=== PATIENT | female | born 1980 | race Caucasian/White ===

== ENCOUNTER → 2016-10-19 | Outpatient (REF) | payer OTHER ==
[~2016-10-19] MED LIST: ACET50TA PO; IBUP60TA PO; IBUP80TA OR; PNV-CAP5 PO
[2016-10-19 12:13] LABS: ALBUMIN 3.5 GM/DL (3.2-5.2); ALKALINE PHOSPHATASE 141 U/L (45-117); ALT/SGPT 36 U/L (12-78); ANION GAP 9 MEQ/L (8-16); AST/SGOT 24 U/L (15-37); BILIRUBIN,TOTAL 0.5 MG/DL (0.2-1.0); BLOOD UREA NITROGEN 11 MG/DL (7-18); CALCIUM LEVEL 8.8 MG/DL (8.5-10.1); CARBON DIOXIDE LEVEL 26 MEQ/L (21-32); CHLORIDE LEVEL 109 MEQ/L (98-107); CHOLESTEROL LEVEL 105 MG/DL (<200); CREATININE FOR GFR 0.44 MG/DL (0.55-1.02); FREE T4 2.53 NG/DL (0.76-1.46); GLOMERULAR FILTRATION RATE > 60.0 (>60); GLUCOSE, FASTING 88 MG/DL (70-105); POTASSIUM SERUM 4.3 MEQ/L (3.5-5.1); SODIUM LEVEL 144 MEQ/L (136-145); TRIGLYCERIDES LEVEL 89 MG/DL (<150)
== END ==
LOC: M SFHCCLAY 07:19
PROVIDERS: ATTEND Family Medicine
DX: Z00.00 Encounter for general adult medical examination without abnormal findings (principal)

== ENCOUNTER → 2016-11-03 | Outpatient (CLI) | payer OTHER ==
--- NOTE | 2016-11-04 05:26 | REP ---
Clinical: Hyperthyroidism. Technique: Real time moore scale evaluation using linear high frequency transducer. Findings: Thyroid gland is heterogeneous without discrete nodule or cystic changes and otherwise unremarkable. Right lobe measures 4.8 x 2.1 x 2.1 cm. Left lobe measures 3.9 x 2.0 x 1.7 cm. Isthmus measures 4.7 mm in width. Impression: Unremarkable thyroid gland Signed by Juan Carlos Barnett MD 11/04/2016 05:17 A
== END ==
LOC: M RAD 16:15
PROVIDERS: ATTEND Family Medicine
DX: E05.90 Thyrotoxicosis, unspecified without thyrotoxic crisis or storm (principal)

== ENCOUNTER → 2016-11-22 | Outpatient (CLI) | payer OTHER ==
--- NOTE | 2016-11-23 14:42 | REP ---
Thyroid uptake and scan: History: Hyperthyroidism versus thyroiditis. Technique: 364.0 microcuries of I 123 sodium iodine is ingested and 2 and 24 uptake values are acquired along with functional thyroid images. Findings: At 2 hours the uptake value is quite elevated at 38.5% (6-12%). At 24 hours the uptake value is very elevated as well at 60.36% (25-35%). Functional images demonstrate homogeneous uptake in the thyroid lobes bilaterally. Right lobe is a little larger than left. No cold or warm lesion is seen. Impression: Findings consistent with Graves disease. 24 uptake value is 60.36%. Signed by Camron Talbot MD 11/23/2016 03:06 P
== END ==
LOC: M RAD 10:35
PROVIDERS: ATTEND Physician Assistant Medical
DX: E05.90 Thyrotoxicosis, unspecified without thyrotoxic crisis or storm (principal)

== ENCOUNTER → 2016-12-22 | Outpatient (CLI) | payer OTHER ==
[2016-12-22 09:45] LABS: FREE T4 3.09 NG/DL (0.76-1.46); HCG, SERUM QUANTITATIVE < 1.0 MIU/ML
== END ==
LOC: M LAB 08:44
PROVIDERS: ATTEND Physician Assistant Medical
DX: E05.00 Thyrotoxicosis with diffuse goiter without thyrotoxic crisis or storm (principal)

== ENCOUNTER → 2016-12-22 | Outpatient (CLI) | payer OTHER | LOC: M RAD 10:25 | PROVIDERS: ATTEND Internal Medicine Endocrinology, Diabetes & Metabolism | DX: E05.90 Thyrotoxicosis, unspecified without thyrotoxic crisis or storm (principal) ==

== ENCOUNTER → 2017-02-13 | Outpatient (REF) | payer OTHER ==
[2017-02-13 20:25] LABS: FREE T4 0.19 NG/DL (0.76-1.46)
== END ==
LOC: M LAB REF 16:16
PROVIDERS: ATTEND Internal Medicine Endocrinology, Diabetes & Metabolism
DX: E05.00 Thyrotoxicosis with diffuse goiter without thyrotoxic crisis or storm (principal)

== ENCOUNTER → 2017-04-27 | Outpatient (REF) | payer OTHER ==
[2017-04-28 12:42] LABS: FREE T4 1.53 NG/DL (0.76-1.46)
== END ==
LOC: M LABDRAWC 11:46
PROVIDERS: ATTEND Internal Medicine Endocrinology, Diabetes & Metabolism
DX: E89.0 Postprocedural hypothyroidism (principal)

== ENCOUNTER → 2017-07-24 | Outpatient (REF) | payer OTHER ==
[2017-07-24 12:43] LABS: FREE T4 1.39 NG/DL (0.76-1.46)
== END ==
LOC: M LABDRAWC 11:27
PROVIDERS: ATTEND Internal Medicine Endocrinology, Diabetes & Metabolism
DX: E89.0 Postprocedural hypothyroidism (principal)

== ENCOUNTER → 2017-10-26 | Outpatient (REF) | payer OTHER ==
[2017-10-27 11:56] LABS: ANION GAP 6 MEQ/L (8-16); BLOOD UREA NITROGEN 17 MG/DL (7-18); CALCIUM LEVEL 8.8 MG/DL (8.5-10.1); CARBON DIOXIDE LEVEL 31 MEQ/L (21-32); CHLORIDE LEVEL 104 MEQ/L (98-107); CREATININE FOR GFR 0.84 MG/DL (0.55-1.02); FREE T4 0.68 NG/DL (0.76-1.46); GLOMERULAR FILTRATION RATE > 60.0 (>60); GLUCOSE, FASTING 101 MG/DL (70-105); POTASSIUM SERUM 3.7 MEQ/L (3.5-5.1); SODIUM LEVEL 141 MEQ/L (136-145)
== END ==
LOC: M LABDRAWC 10-27 11:18
DX: R63.5 Abnormal weight gain (principal); R89.0 Abnormal level of enzymes in specimens from other organs, systems and tissues

== ENCOUNTER → 2017-12-25 | Outpatient (REF) | payer OTHER ==
[2017-12-25 18:20] LABS: FREE T4 1.66 NG/DL (0.76-1.46); THYROID STIMULATING HORMONE 0.156 uIU/ML (0.358-3.740)
== END ==
LOC: M LABDRAWC 16:02
DX: E89.0 Postprocedural hypothyroidism (principal)

== ENCOUNTER → 2018-02-05 | Outpatient (CLI) | payer OTHER | LOC: M RAD 08:45 | DX: R93.7 Abnormal findings on diagnostic imaging of other parts of musculoskeletal system (principal) | CPT/HCPCS: 73700 ==

== ENCOUNTER → 2018-02-22 | Outpatient (REF) | payer OTHER ==
[2018-02-22 12:48] LABS: FREE T4 1.41 NG/DL (0.76-1.46); THYROID STIMULATING HORMONE 0.474 uIU/ML (0.358-3.740)
== END ==
LOC: M LABDRAWC 11:26
DX: E89.0 Postprocedural hypothyroidism (principal)
CPT/HCPCS: 84443

== ENCOUNTER → 2018-04-20 | Outpatient (CLI) | payer OTHER | LOC: M RAD 09:38 | DX: S92.115A Nondisplaced fracture of neck of left talus, initial encounter for closed fracture (principal); X58.XXXA Exposure to other specified factors, initial encounter; Y92.89 Other specified places as the place of occurrence of the external cause; Y93.9 Activity, unspecified; Y99.9 Unspecified external cause status ==

== ENCOUNTER → 2018-07-10 | Outpatient (REF) | payer OTHER ==
[2018-07-10 18:33] LABS: FREE T4 1.01 NG/DL (0.76-1.46)
== END ==
LOC: M LABDRAWC 16:25
DX: E89.0 Postprocedural hypothyroidism (principal)
CPT/HCPCS: 84443

== ENCOUNTER → 2021-05-24 | Outpatient (REF) | payer OTHER ==
[~2021-05-24] MED LIST changes: -ACET50TA PO; +IBUP600T42 PO; -IBUP60TA PO; +MAPA500T17 PO; +MAPA500T2 PO
== END ==
LOC: M SFHCWAGY 15:00
PROVIDERS: ATTEND Advanced Practice Midwife
DX: Z12.4 Encounter for screening for malignant neoplasm of cervix (principal)

== ENCOUNTER → 2022-05-09 | Outpatient (REF) | payer OTHER ==
[2022-05-09 22:37] LABS: FREE T4 1.68 NG/DL (0.76-1.46); THYROID STIMULATING HORMONE < 0.005 uIU/ML (0.358-3.740)
== END ==
LOC: M SFHCCLAY 10:17
PROVIDERS: ATTEND Family Medicine
DX: E89.0 Postprocedural hypothyroidism (principal)

== ENCOUNTER → 2022-06-17 | Outpatient (REF) | payer OTHER ==
[2022-06-17 13:49] LABS: FREE T4 1.49 NG/DL (0.76-1.46); THYROID STIMULATING HORMONE 0.006 uIU/ML (0.358-3.740)
== END ==
LOC: M SFHCCLAY 09:04
PROVIDERS: ATTEND Nurse Practitioner Family
DX: E89.0 Postprocedural hypothyroidism (principal)

== ENCOUNTER → 2022-12-05 | Outpatient (REF) | payer OTHER ==
[2022-12-05 12:00] LABS: FREE T4 1.28 NG/DL (0.89-1.76)
[2022-12-05 12:01] LABS: THYROID STIMULATING HORMONE 1.829 uIU/ML (0.55-4.78)
== END ==
LOC: M SFHCCLAY 08:15
PROVIDERS: ATTEND Nurse Practitioner Family
DX: E89.0 Postprocedural hypothyroidism (principal)

== ENCOUNTER → 2024-10-17 | Outpatient (REF) | payer OTHER | LOC: M SFHCCLAY 15:06 | PROVIDERS: ATTEND Nurse Practitioner Family | DX: E89.0 Postprocedural hypothyroidism (principal); E66.09 Other obesity due to excess calories; Z68.39 Body mass index [BMI] 39.0-39.9, adult; Z00.00 Encounter for general adult medical examination without abnormal findings ==